=== PATIENT | female | born 1970 | race African-American/Black ===

== ENCOUNTER 2016-03-09 10:34 | Emergency (ER) | payer OTHER ==
[2016-03-09] MEDS ORDERED: KETOROLAC 60 MG/2 ML VIAL IM STA (11:57)
[2016-03-09] MEDS ORDERED: methylPREDNISolone SOD SUCCI 125 MG/2 ML VIAL IM STA (11:57)
--- NOTE | 2016-03-09 12:18 | ED ---
Back Pain HPI - General Chief Complaint: Back Pain/Injury Stated Complaint: back and rt leg pain Time Seen by Provider: 03/09/16 11:40 Source: patient, RN notes reviewed Limitations: no limitations - History of Present Illness Initial Comments: 45 presents emergency department chief complaint of chronic back pain flare. patient states she's had chronic back pain for about a year now. patient states she is scheduled to follow-up with her specialist about a week. patient states that her chronic back pain flared up. patient states it's in the right side of her back. patient states that radiates on the right leg much like her typical back pain. patient states pain is moderate. patient states she does not like opiate type pain medication. patient states she took her tramadol her lyrica with no improvement. patient states she is wondering if maybe she can. some steroids. patient has a lumbar bladder function with this. patient denies any fever chills. patient states that she was concerned due to the pain and she cannot handle it at home so she thought maybe it help. Patient denies any recent fever, chills, shortness of breath, chest pain, abdominal pain, nausea vomiting, numbness or tingling, dysuria or hematuria, constipation or diarrhea, headaches or visual changes, or any other current symptoms. - Related Data Home Medications Medication Instructions Recorded Confirmed Baclofen [Lioresal] 10 mg PO HS 03/09/16 03/09/16 Fluticasone Nasal [place] [Flonase 2 spr EA NOSTRIL DAILY 03/09/16 03/09/16 Nasal [place]] Meloxicam [Mobic] 7.5 mg PO BID 03/09/16 03/09/16 Naproxen Sodium 220 mg PO BID PRN 03/09/16 03/09/16 Pregabalin [Lyrica] 100 mg PO TID 03/09/16 03/09/16 Propranolol HCl [Inderal] 60 mg PO DAILY 03/09/16 03/09/16 Verapamil Sr [Isoptin Sr] 240 mg PO DAILY 03/09/16 03/09/16 traMADol HCL [Ultram] 50 mg PO TID PRN 03/09/16 03/09/16 Previous Rx's Medication Instructions Recorded predniSONE 50 mg PO DAILY #5 tab 03/09/16 Allergies Allergy/AdvReac Type Severity Reaction Status Date / Time No Known Allergies Allergy Verified 03/09/16 12:18 Review of Systems ROS Statement: Those systems with pertinent positive or pertinent negative responses have been documented in the HPI. ROS Other: All systems not noted in ROS Statement are negative. Past Medical History Past Medical History: Hypertension Additional Past Medical History / Comment(s): chronic back pain History of Any Multi-Drug Resistant Organisms: None Reported Past Surgical History: Orthopedic Surgery, Tubal Ligation Additional Past Surgical History / Comment(s): finger surgery Past Psychological History: No Psychological Hx Reported Smoking Status: Current every day smoker Past Alcohol Use History: None Reported Past Drug Use History: None Reported General Exam Limitations: no limitations General appearance: alert, in no apparent distress Head exam: Present: atraumatic, normocephalic, normal inspection ENT exam: Present: normal exam, mucous membranes moist Respiratory exam: Present: normal lung sounds bilaterally. Absent: respiratory distress, wheezes, rales, rhonchi, stridor Cardiovascular Exam: Present: regular rate, normal rhythm, normal heart sounds. Absent: systolic murmur, diastolic murmur, rubs, gallop, clicks Extremities exam: Present: normal inspection, full ROM, normal capillary refill. Absent: tenderness, pedal edema, joint swelling, calf tenderness Back exam: Present: normal inspection, full ROM, tenderness (Right flank and SI joint on the right). Absent: CVA tenderness (R), CVA tenderness (L) Neurological exam: Present: alert, oriented X3, CN II-XII intact. Absent: motor sensory deficit Psychiatric exam: Present: normal affect, normal mood Skin exam: Present: warm, dry, intact, normal color. Absent: rash Course Vital Signs 03/09/16 03/09/16 03/09/16 11:18 12:36 12:54 Temperature 99.1 F 98.3 F Pulse Rate 79 80 Respiratory 18 16 Rate Blood Pressure 185/110 171/94 O2 Sat by Pulse 100 100 Oximetry - Reevaluation(s) Reevaluation #1: 03/09/16 12:54 Patient was found be hypertensive. We discussed follow-up with her doctor. Medical Decision Making - Medical Decision Making 45-year-old female presents emergency Department chief complaint of flareup of her right-sided back pain that is chronic. This time we did give the patient injections. We will start her on steroids for home. We discussed close follow- up with her doctor and return parameters. We discussed all the patient's questions. She stated that she understood. This and she'll be discharged home. Disposition Clinical Impression: Chronic back pain Disposition: HOME SELF-CARE Condition: Stable Instructions: Chronic Back Pain (ED) Additional Instructions: Please use medication as discussed. Please follow up with family doctor if symptoms have not improved over the next two days. Please return to the emergency room if your symptoms increase or worsen or for any other concerns. Prescriptions: predniSONE 50 mg PO DAILY #5 tab Referrals: Polo Callahan MD [Primary Care Provider] - 1-2 days Time of Disposition: 12:55
[2016-03-09 12:37] VITALS: PULSE 80; RESP 16; TEMP 98.3
[2016-03-09 12:54] VITALS: BP 171/94
== END 2016-03-09 12:59 | disposition home or self-care (01) ==
LOC: EC 10:34
DX: G89.29 Other chronic pain (principal); M54.9 Dorsalgia, unspecified; I10 Essential (primary) hypertension; F17.200 Nicotine dependence, unspecified, uncomplicated; Z79.899 Other long term (current) drug therapy
CPT/HCPCS: 99283; 96372 ×2; J2930; J1885

== ENCOUNTER → 2016-03-12 | Outpatient (CLI) | payer OTHER ==
--- NOTE | 2016-03-12 14:47 | US ---
EXAMINATION TYPE: US venous doppler duplex LE RT DATE OF EXAM: 03/12/2016 2:21 PM COMPARISON: NONE CLINICAL HISTORY: Right leg tingling, no h/o dvt. SIDE PERFORMED: Right VESSELS IMAGED: External Iliac Vein (EIV) Common Femoral Vein Deep Femoral Vein Greater Saphenous Vein * Femoral Vein Popliteal Vein Small Saphenous Vein * Proximal Calf Veins (* superficial vessels) IMPRESSION: Right Leg: Appears negative for DVT
== END | disposition home or self-care (01) ==
LOC: RADUSWWP 14:03
PROVIDERS: ATTEND Internal Medicine
DX: R22.41 Localized swelling, mass and lump, right lower limb (principal); M79.661 Pain in right lower leg

== ENCOUNTER → 2016-03-19 | Outpatient (CLI) | payer OTHER ==
[2016-03-19 17:58] LABS: Non-African American GFR(MDRD) >60 (>60 ml/min/1.73 sqM)
== END ==
LOC: LABWHC1 16:53
PROVIDERS: ATTEND Physical Medicine & Rehabilitation
DX: I10 Essential (primary) hypertension (principal); G89.29 Other chronic pain
CPT/HCPCS: 36415; 82565

== ENCOUNTER → 2016-03-20 | Outpatient (CLI) | payer OTHER ==
--- NOTE | 2016-03-20 23:17 | MR ---
EXAMINATION TYPE: MR lumbar spine wo/w con DATE OF EXAM: 03/20/2016 7:30 PM COMPARISON: Prior MRI March 16, 2014 HISTORY: LBP, RLE pain/tingling/numbness x 1 year; Fell down stairs 2 years ago all per patient. Lumb osacral radiculopathy per order. TECHNIQUE: Multiplanar, multisequence images of the lumbar spine is performed without and with IV contrast, util izing 15 mL intravenous MultiHance FINDINGS: Sagittal images of the lumbar spine show vertebral body heights and alignment to appear sat isfactory. There is persistent mild diffuse disc desiccation but the disc space heights remain relati vely well-maintained. No large posterior disc herniations are seen on sagittal images. The conus med ullaris remains normal in position and signal ending at mid L1 vertebral body level. The bone marrow signal intensity is within normal limits. No suspicious postcontrast enhancement is seen. No signifi cant spurring is noted. Axial images show mild facet degenerative changes at T12-L1, L1-L2, and L2-L3 level without significa nt disc herniation or spinal canal effacement, bilateral neural foramina remain patent. Axial images at the L3-L4 level show mild to moderate facet degenerative changes and ligamentum flavu m hypertrophy. There is broad-based posterior disc protrusion minimally effacing the anterior thecal sac. There is mild left-sided anterior inferior neural foraminal narrowing. Right-sided neural forame n is patent. Axial images at L4-L5 level show mild to moderate facet degenerative changes and ligamentum flavum hy pertrophy with broad-based posterior disc protrusion minimally effacing the anterior thecal sac. Bila teral neural foramina are grossly patent. No significant change from prior study is seen Axial images at L5-S1 level shows central disc protrusion but spinal canal is preserved. There are mo derate to advanced facet degenerative changes seen bilaterally. There is new T1 isointense and T2 hyp ointense lesion on axial image 8 right lateral recess level suspicious for complex synovial cyst toma uring approximately 8 mm transversely by 7 mm in anterior posterior dimension by 10 mm in craniocauda l dimension with significant mass effect on the lateral recess. It is extra medullary extradural in l ocation. No significant enhancement is seen. Disc fragment would been differential but no donor site or significant degenerative change is seen to imply disc fragment. Location next to facet joint favor s complex synovial cyst. Mass effect on lateral spinal canal is seen including central S1 nerve. Bila teral neural foramina remain patent. Axial images at S1-S2 level show facet arthropathy otherwise are felt within normal limits. There is redemonstration of retroverted uterus with partial visualization from low T2 lesions felt to reflect fibroids. There are few subcentimeter round T2 hyperintense lesions scattered throughout sli ce portion of liver felt to reflect simple cysts. IMPRESSION: Multilevel degenerative changes most pronounced in the lower lumbar spine, note is made o f significant new finding at L5-S1 level where new lesion probable synovial cyst causes significant m ass effect on the right lateral spinal canal and central right S1 nerve.
== END | disposition home or self-care (01) ==
LOC: RADMRIMAIN 18:37
PROVIDERS: ATTEND Physical Medicine & Rehabilitation
DX: M47.26 Other spondylosis with radiculopathy, lumbar region (principal)
CPT/HCPCS: 72158; A9577

== ENCOUNTER → 2016-06-18 | Outpatient (CLI) | payer OTHER ==
--- NOTE | 2016-06-18 17:59 | US ---
EXAMINATION TYPE: US thyroid st tissue head/neck DATE OF EXAM: 06/18/2016 5:18 PM COMPARISON: NONE CLINICAL HISTORY: R22.0 Swelling,R94.6 Abn Thyroid Labs. R/O goiter, difficulty swallowing pills GLAND SIZE: Right Lobe: 5.9 x 3.0 x 1.8 cm Overall Parenchyma: homogeneous Left Lobe: 5.6 x 2.5 x 1.8 cm Overall Parenchyma: homogeneous Isthmus Thickness: 0.8 cm NODULES RIGHT: # of nodules measured on right: 2 1. 1.3 X 1.3 x 0.8 cm hypoechoic solid nodule at the lower pole with well-defined margins. This no dule is taller than wide and shows intranodular vascularity. Prior size: no prior 2. 0.7 X 0.7 x 0.3 cm hypoechoic with echogenic center nodule at the upper pole with well-defined m argins. This nodule is taller than wide and shows no intranodular vascularity. Prior size: no prior LEFT: # of nodules measured on left: 1 1. 0.9 X 0.7 x 0.6 cm isoechoic solid nodule at the mid pole with well-defined margin. This nodule is taller than wide and shows peripheral vascularity. Prior size: no prior ISTHMUS: # of nodules measured in the isthmus: 0 Bilateral neck scanned, no evidence of lymphadenopathy. Bilateral thyroid lobe enlargement. IMPRESSION: Enlarged thyroid gland with bilateral findings consistent with multinodular goiter. No dominant thyro id mass seen. I have a low suspicion of malignancy.
== END | disposition home or self-care (01) ==
LOC: RADUSWWP 16:59
PROVIDERS: ATTEND Internal Medicine
DX: E04.9 Nontoxic goiter, unspecified (principal)
CPT/HCPCS: 76536

== ENCOUNTER → 2016-12-07 | Outpatient (CLI) | payer OTHER ==
--- NOTE | 2016-12-07 12:23 | XR ---
EXAMINATION TYPE: XR ankle limited RT, XR foot limited RT DATE OF EXAM: 12/07/2016 COMPARISON: NONE HISTORY: Pain TECHNIQUE: Frontal, lateral images of the right ankle and foot are obtained. COMPARISON: None. FINDINGS: There is no acute fracture/dislocation evident. Degenerative changes midfoot. The overlyin g soft tissue appears unremarkable. IMPRESSION: There is no acute fracture or dislocation seen.
== END | disposition home or self-care (01) ==
LOC: RADXRMAIN 12:04
PROVIDERS: ATTEND Internal Medicine
DX: M25.571 Pain in right ankle and joints of right foot (principal)

== ENCOUNTER → 2017-04-29 | Outpatient (CLI) | payer OTHER ==
--- NOTE | 2017-04-29 19:08 | MR ---
EXAMINATION TYPE: MR cervical spine wo con DATE OF EXAM: 04/29/2017 COMPARISON: NONE HISTORY: Pain and Numbness in Both Arms x1 year TECHNIQUE: Multiplanar, multisequence images of the cervical spine were acquired. C2-C3: No evidence for degenerative disc disease. No disc bulge/herniation or protrusion. No Canal stenosis. Foramina are patent bilaterally. C3-C4: There is uncovertebral joint hypertrophy on the right with mild right-sided foraminal encroach ment. Broad-based mild right paracentral disc bulging which effaces the thecal sac. C4-C5: Mild uncovertebral joint hypertrophy. No Canal stenosis. No disc herniation. Mild broad-based central disc bulging. C5-C6: Mild disc desiccation. Neural foramina remain patent. No canal stenosis or focal herniation. C6-C7: No disc herniation or canal stenosis. No foraminal encroachment. C7-T1: No evidence for degenerative disc disease. No disc bulge/herniation or protrusion. No Canal stenosis. Foramina are patent bilaterally. Cervical segments are intact. There is normal alignment. Cervical spinal cord is of normal signal. Craniovertebral junction relationships are within normal limits. The right gland appears to be enla rged. There is mucosal thickening along the hypopharynx laterally in the left. Small mucosal lesion m easuring 8 mm not excluded. IMPRESSION: 1. Multilevel mild degenerative disc disease. Disc bulging noted paracentrally to the right effaces t he thecal sac at C3-C4 and abuts the anterior margin of the spinal cord with no evidence of displacem ent or compression. 2. Mild central disc bulging C4-C5 with no canal stenosis or foraminal encroachment. 3. The findings suspicious for mucosal lesion along the left lateral hypopharynx. ENT consultation an d direct visualization recommended. Correlate clinically.
== END | disposition home or self-care (01) ==
LOC: RADMRIMAIN 18:16
PROVIDERS: ATTEND Psychiatry & Neurology Neurology
DX: M50.21 Other cervical disc displacement, high cervical region (principal); M50.30 Other cervical disc degeneration, unspecified cervical region
CPT/HCPCS: 72141

== ENCOUNTER → 2018-07-08 | Outpatient (CLI) | payer MEDICARE, OTHER ==
--- NOTE | 2018-07-09 11:25 | US ---
EXAMINATION TYPE: US thyroid st tissue head/neck DATE OF EXAM: 07/08/2018 COMPARISON: US CLINICAL HISTORY: R22.0 Thyroid nodule. GLAND SIZE: Right Lobe: 6.0 x 1.6 x 2.5 cm Overall Parenchyma: homogenous Left Lobe: 5.8 x 1.6x 2.3 cm Overall Parenchyma: homogeneous Isthmus Thickness: 0.5 cm NODULES RIGHT: # of nodules measured on right: 2 1. 0.9 X 0.7 x 0.7 cm isoechoic solid nodule at the lower pole with well-defined margins; . This n odule is wider than tall and shows intranodular vascularity. Prior size: 1.3 x 1.3 x 0.8 cm 2. 0.6 X 0.5 x 0.6 cm hypoechoic cystic nodule at the upper pole with well-defined margins; . This nodule is wider than tall and shows no intranodular vascularity. Prior size: 0.7 x 0.7 x 0.3 cm LEFT: # of nodules measured on left: 1 1. 0.7 X 0.6 x 0.6 cm isoechoic solid nodule at the mid pole with poorly defined margins; . This n odule is wider than tall and shows intranodular vascularity. Prior size: 0.9 x 0.7 x 0.6 cm ISTHMUS: # of nodules measured in the isthmus: 0 Bilateral neck scanned, no evidence of lymphadenopathy. Nodules as described. IMPRESSION: 1. Bilateral nonspecific thyroid nodularity. Thyroid glandular enlargement. Thyroid function testing and physical exam findings.
== END ==
LOC: RADUSWWP 15:57
PROVIDERS: ATTEND Internal Medicine
DX: E04.1 Nontoxic single thyroid nodule (principal)
CPT/HCPCS: 76536

== ENCOUNTER 2018-07-23 23:56 | Emergency (ER) | payer MEDICARE, OTHER ==
[2018-07-24 00:10] VITALS: BP 115/76; PULSE 81; RESP 18; TEMP 97.7
--- NOTE | 2018-07-24 00:46 | XR ---
EXAM: XR Left Foot Complete, 3 or More Views CLINICAL HISTORY: ITS.REASON XR Reason: Pain TECHNIQUE: Frontal, lateral and oblique views of the left foot. COMPARISON: No relevant prior studies available. FINDINGS: Bones/joints: No acute fracture. No dislocation. Soft tissues: Unremarkable. No radiopaque foreign body. IMPRESSION: No acute findings.
--- NOTE | 2018-07-24 00:47 | XR ---
EXAM: XR Left Tibia and Fibula, 2 Views CLINICAL HISTORY: ITS.REASON XR Reason: Pain TECHNIQUE: Frontal and lateral views of the left tibia and fibula. COMPARISON: No relevant prior studies available. FINDINGS: Bones/joints: No acute fracture. No dislocation. Soft tissues: Unremarkable. No radiopaque foreign body. IMPRESSION: No acute findings.
--- NOTE | 2018-07-24 00:51 | ED ---
Lower Extremity Injury HPI - General Chief Complaint: Extremity Injury, Lower Stated Complaint: Lt leg injury Time Seen by Provider: 07/24/18 00:17 Source: patient Mode of arrival: ambulatory Limitations: no limitations - History of Present Illness Initial Comments: 48-year-old female patient presents to the emergency department today for evaluation of left lower leg and foot pain. Patient states that she was in her garage when she had a large wrench fall onto her leg. Patient states that she has been having discomfort to the leg since. Patient's that she does have some discomfort with ambulation. She denies any numbness or tingling to the foot or leg. Denies any previous injury. She denies any other injuries or concerns.Patient denies any headache, neck pain, back pain, chest pain, shortness of breath, dizziness, weakness, abdominal pain, nausea, vomiting, or difficulties with bowel movements or urination. - Related Data Home Medications Medication Instructions Recorded Confirmed Baclofen [Lioresal] 10 mg PO HS 03/09/16 03/09/16 Fluticasone Nasal [place] [Flonase 2 spr EA NOSTRIL DAILY 03/09/16 03/09/16 Nasal [place]] Meloxicam [Mobic] 7.5 mg PO BID 03/09/16 03/09/16 Naproxen Sodium 220 mg PO BID PRN 03/09/16 03/09/16 Pregabalin [Lyrica] 100 mg PO TID 03/09/16 03/09/16 Propranolol HCl [Inderal] 60 mg PO DAILY 03/09/16 03/09/16 Verapamil Sr [Isoptin Sr] 240 mg PO DAILY 03/09/16 03/09/16 traMADol HCL [Ultram] 50 mg PO TID PRN 03/09/16 03/09/16 Previous Rx's Medication Instructions Recorded predniSONE 50 mg PO DAILY #5 tab 03/09/16 Allergies Allergy/AdvReac Type Severity Reaction Status Date / Time No Known Allergies Allergy Verified 03/09/16 12:18 Review of Systems ROS Statement: Those systems with pertinent positive or pertinent negative responses have been documented in the HPI. ROS Other: All systems not noted in ROS Statement are negative. Past Medical History Past Medical History: Hypertension Additional Past Medical History / Comment(s): chronic back pain History of Any Multi-Drug Resistant Organisms: None Reported Past Surgical History: Orthopedic Surgery, Tubal Ligation Additional Past Surgical History / Comment(s): finger surgery Past Psychological History: No Psychological Hx Reported Smoking Status: Current every day smoker Past Alcohol Use History: None Reported Past Drug Use History: None Reported General Exam Limitations: no limitations General appearance: alert, in no apparent distress, other (Physical well- developed, well-nourished adult female patient in no acute distress. Vital signs upon presentation are temperature 97.7F, pulse 81, respirations 18, blood pressure 115/76, pulse ox 98% on room air.) Eye exam: Present: normal appearance, PERRL, EOMI. Absent: scleral icterus, conjunctival injection, periorbital swelling Respiratory exam: Present: normal lung sounds bilaterally. Absent: respiratory distress, wheezes, rales, rhonchi, stridor Cardiovascular Exam: Present: regular rate, normal rhythm, normal heart sounds. Absent: systolic murmur, diastolic murmur, rubs, gallop, clicks GI/Abdominal exam: Present: soft, normal bowel sounds. Absent: distended, tenderness, guarding, rebound, rigid Extremities exam: Present: full ROM, normal capillary refill, other (Ecchymosis noted to the left lateral calf. There is tenderness over the dorsal aspect of the left foot. No ankle tenderness. Skin is warm and dry. Cap refills less than 3 seconds. Pedal pulses 2+ and equal bilaterally.). Absent: normal inspection, tenderness, pedal edema, joint swelling, calf tenderness Neurological exam: Present: alert, oriented X3, CN II-XII intact Psychiatric exam: Present: normal affect, normal mood Skin exam: Present: warm, dry, intact, normal color. Absent: rash Course Vital Signs 07/24/18 00:05 Temperature 97.7 F Pulse Rate 81 Respiratory 18 Rate Blood Pressure 115/76 O2 Sat by Pulse 98 Oximetry Medical Decision Making - Medical Decision Making 48-year-old female patient presents to the emergency department today for evaluation of left lower leg and foot pain after a large wrench fell onto her leg on . Physical examination did reveal some ecchymosis to the left lateral calf. Neurovascular status is intact. X-rays of the left tib-fib and left foot were obtained and showed no evidence for fracture. We did discuss findings. Patient's symptoms are consistent with contusion of the leg and foot. She is instructed to rest, ice, elevate the extremity. She is instructed to take Tylenol for pain control. She is instructed to follow-up with her primary care physician for recheck in 1-2 days. Return parameters discussed in detail. She verbalizes understanding and agrees with this plan. - Radiology Data Radiology results: report reviewed, image reviewed 2 views of the left tib-fib are obtained. Report was reviewed in its entirety. Impression by Dr. Berry shows no acute findings. 3 views of the left foot are obtained. Report was reviewed in its entirety. Impression by Dr. Berry shows no acute findings. Disposition Clinical Impression: Contusion of left lower extremity Disposition: HOME SELF-CARE Condition: Good Instructions (If sedation given, give patient instructions): Contusion in Adults (ED) Additional Instructions: Rest, ice, elevate the leg. Follow up with your primary care physician for recheck in 1-2 days. Return to the emergency department immediately for any new, worsening, or concerning symptoms Is patient prescribed a controlled substance at d/c from ED?: No Referrals: Polo Callahan MD [Primary Care Provider] - 1-2 days Time of Disposition: 00:51
== END 2018-07-24 01:09 | disposition home or self-care (01) ==
LOC: EC 23:56
DX: S80.12XA Contusion of left lower leg, initial encounter (principal); M79.672 Pain in left foot; I10 Essential (primary) hypertension; G89.29 Other chronic pain; F17.200 Nicotine dependence, unspecified, uncomplicated; Z79.1 Long term (current) use of non-steroidal anti-inflammatories (NSAID); Z79.51 Long term (current) use of inhaled steroids; Z79.899 Other long term (current) drug therapy; W20.8XXA Other cause of strike by thrown, projected or falling object, initial encounter; Y92.015 Private garage of single-family (private) house as the place of occurrence of the external cause
CPT/HCPCS: 99283

== ENCOUNTER → 2019-02-13 | Outpatient (CLI) | payer MEDICARE, OTHER ==
--- NOTE | 2019-02-13 13:48 | US ---
EXAMINATION TYPE: US venous doppler duplex LE RT DATE OF EXAM: 02/13/2019 1:23 PM COMPARISON: None CLINICAL HISTORY: M25.561 Pain in RT leg. Patient states doctor felt an enlarged vein. No hx DVT. N ot on blood thinners. SIDE PERFORMED: Right TECHNIQUE: The lower extremity deep venous system is examined utilizing real time linear array sonog sania with graded compression, doppler sonography and color-flow sonography. VESSELS IMAGED: External Iliac Vein (EIV) Common Femoral Vein Deep Femoral Vein Greater Saphenous Vein * Femoral Vein Popliteal Vein Small Saphenous Vein * Proximal Calf Veins (* superficial vessels) Grayscale, color doppler, spectral doppler imaging performed of the deep veins of the right lower ext remity. There is normal flow, compressibility, vascular waveforms. Right Leg: Negative for DVT IMPRESSION: No sonographic evidence of deep venous thrombosis within the right lower extremity.
== END | disposition home or self-care (01) ==
LOC: RADUSWWP 12:44
PROVIDERS: ATTEND Orthopaedic Surgery
DX: I80.3 Phlebitis and thrombophlebitis of lower extremities, unspecified (principal); M25.561 Pain in right knee; M25.522 Pain in left elbow

== ENCOUNTER 2019-03-17 11:34 | Day surgery (SDC) | payer MEDICARE, OTHER ==
[~2019-03-17 11:34] MED LIST: DEXAMETHASONE SOD PHOSPHATE 10 MG/ML 1 ML VIAL IV ONE; HYDROmorphone 0.5 MG/0.5 ML SYRINGE IVP PRN; LACTATED RINGERS 1,000 ML IV SCH; MIDAZOLAM 2 MG/2 ML VIAL IV PRN; ONDANSETRON 4 MG/2 ML VIAL IVP ONE; Pre Op ABX Message 1 EACH MISC MISCELLANE ONE; SCOPOLAMINE 1.5MG/72HR PATCH TRANSDERM ONE
[2019-03-17 12:06] LABS: Glucose,Whole Blood 125 mg/dL (75-99)
[2019-03-17 12:12] VITALS: TEMP 97
[2019-03-17] MEDS ORDERED: fentaNYL (PF) 50 MCG/ML 2 ML AMP ONE (12:26)
[2019-03-17] MEDS ORDERED: MIDAZOLAM 2 MG/2 ML VIAL ONE (12:26)
[2019-03-17] MEDS ORDERED: PROPOFOL 10 MG/ML 20 ML VIAL IV ONE (12:26)
[2019-03-17] MEDS ORDERED: LIDOCAINE 2% (PF) 20 MG/ML 10 ML AMP SQ ONE (12:30)
[2019-03-17 13:24] VITALS: BP 127/85; PULSE 70; RESP 18
--- NOTE | 2019-04-07 13:17 | P.OP ---
Date of Procedure: 03/17/19 Procedure(s) Performed: PREOPERATIVE DIAGNOSES: 1. Left carpal tunnel syndrome POSTOPERATIVE DIAGNOSES: 1. Left carpal tunnel syndrome PROCEDURES PERFORMED: 1. Left open carpal tunnel release ANESTHESIA: Local plus IV sedation CLINICAL SCIENTIST: None COMPLICATIONS: None ESTIMATED BLOOD LOSS: Less than 10 cc TOURNIQUET: 10 minutes DISPOSITION: To post-anesthesia care unit INDICATIONS: Sravani is a 48-year-old female with a history of left carpal tunnel syndrome, who presents today for carpal tunnel release. The right side has artery been released successfully recently. The risks and potential complications of surgery have been discussed at length. The consent form has been signed. PROCEDURE: The patient was taken to the operating room after appropriate consent was obtained. IV sedation was initiated and the left upper extremity was prepared and draped in the usual aseptic fashion with Hibiclens prep. The path of the incision and deeper tissues were injected with 2% Lidocaine solution. A total of approximately 10 cc was used. Exsanguination of the limb with an Esmarch bandage was accomplished and the tourniquet was inflated to 200 mm Hg. The skin was then incised with a scalpel just through the dermis into the subcutaneous tissue. The location of the incision was at the base of the palm, at the radial border of the fourth ray. Blunt spreading using dissecting scissors was performed down to palmar fascia, which was then split using a #15 blade scalpel, revealing the underlying transverse carpal ligament. The transverse carpal ligament was incised with this blade under direct visualization at its ulnar border until it was fully released. The contents of the carpal tunnel were normal. No aberrant muscles, tenosynovitis, or tumors were noted. The proximal and distal fascial releases were completed using gentle push technique with small dissecting scissors. Complete release was confirmed by visualization and palpation. Hemostasis was obtained with a bipolar electrocautery device as well as pressure over the wound after deflation of the tourniquet. Closure was performed with 4-0 nylon sutures in vertical mattress technique. Sterile dressing and light compressive dressing were applied and the patient was taken to recovery room in stable condition. Sponge and needle count were correct.
--- NOTE | 2019-04-10 08:13 | CDI ---
Outpatient Documentation Clarification Form Date: 04/10/19 CDS/[employer] Name: Jodi Dinero Phone: if any questions, call Tasha Kessler at [phone] Patient Name: Sravani Wilkins Admit Date: 03/17/19 Discharge Date: 03/17/19 ATTENTION: The [facility] Coding Staff appreciate your assistance in clarifying documentation. Please respond to the clarification below the line at the bottom and electronically sing. The [facility] Coding Staff will review the response and follow-up if needed. Please Note: Queries are made part of the Legal Health Record. If you have any questions, please contact the [facility]. Dear Dr. Norton, Please provide clarification as to the laterality of the procedure. The H&P and anesthesia record state left carpal tunnel and the operative note states right carpal tunnel. Please clarify Thank you for your kind consideration. MTDD
== END 2019-03-17 13:50 | disposition home or self-care (01) ==
LOC: OR 11:34
PROVIDERS: ATTEND Orthopaedic Surgery
DX: G56.02 Carpal tunnel syndrome, left upper limb (principal); I10 Essential (primary) hypertension; Z97.3 Presence of spectacles and contact lenses; Z82.49 Family history of ischemic heart disease and other diseases of the circulatory system; F17.210 Nicotine dependence, cigarettes, uncomplicated; E78.5 Hyperlipidemia, unspecified; E11.9 Type 2 diabetes mellitus without complications; M19.90 Unspecified osteoarthritis, unspecified site; Z98.51 Tubal ligation status; K21.9 Gastro-esophageal reflux disease without esophagitis; Z79.84 Long term (current) use of oral hypoglycemic drugs; Z79.1 Long term (current) use of non-steroidal anti-inflammatories (NSAID); Z79.899 Other long term (current) drug therapy
CPT/HCPCS: 81025; 64721; J2250; J1100; J2001; J2405; J3010; J2704

== ENCOUNTER → 2020-03-28 | Outpatient (CLI) | payer MEDICARE, OTHER ==
[2020-03-28 14:55] LABS: Basophils % (A) 1 %; Eosinophils # (A) 0.1 k/uL (0-0.7); Eosinophils % (A) 1 %; HCT 36.9 % (34.0-46.0); HGB 12.3 gm/dL (11.4-16.0); Lymphocytes # (A) 2.1 k/uL (1.0-4.8); Lymphocytes % (A) 33 %; MCH 29.7 pg (25.0-35.0); MCHC 33.3 g/dL (31.0-37.0); MCV 89.3 fL (80.0-100.0); Monocytes # (A) 0.4 k/uL (0-1.0); Monocytes % (A) 6 %; Neutrophils # (A) 3.6 k/uL (1.3-7.7); Neutrophils % (A) 58 %; Platelet Count 181 k/uL (150-450); RBC 4.14 m/uL (3.80-5.40); RDW 14.7 % (11.5-15.5); WBC 6.2 k/uL (3.8-10.6)
[2020-03-28 15:55] LABS: Erythrocyte Sedimentation Rate 28 mm/hr (0-20)
[2020-03-28 15:59] LABS: Appearance,BF Bloody; Color,BF Red; Nucleated Cells, Body Fluid 2500 /uL; RBC, Body Fluid 63500 /uL
[2020-03-28 16:57] LABS: Mononuclear WBC,Body Fluid 79 %; Polynuclear WBC,Body Fluid 21 %; Total Cells Counted,Body Fluid 100
[2020-03-29 00:32] LABS: Cyclic Citrull Pep IgG Unit <0.5 U/mL; Cyclic Citrullinated Pep IgG NEGATIVE (NEGATIVE)
[2020-03-29 01:29] LABS: T4, Free (Free Thyroxine) 1.1 ng/dL (0.80-1.80)
[2020-03-29 01:46] LABS: African American GFR (CKD) 85.8 (60.0-200.0); Anion Gap 8.9 mmol/L (4.00-12.00); BUN/Creat Ratio 15.56 Ratio (12.00-20.00); C Reactive Protein 1.9 mg/dL (0.0-0.8); Calcium 9.6 mg/dL (8.7-10.3); Carbon Dioxide 27.1 mmol/L (21.6-31.8); Potassium 3.9 mmol/L (3.5-5.5); Uric Acid 5.4 mg/dL (2.9-7.7)
[2020-03-29 12:57] LABS: Angiotensin-1 Converting Enz. 24 U/L (8-52)
[2020-03-29 17:39] LABS: HLA B27 NEGATIVE
== END | disposition home or self-care (01) ==
LOC: LABWHC1 14:00
PROVIDERS: ATTEND Orthopaedic Surgery
DX: M25.561 Pain in right knee (principal); M25.562 Pain in left knee; M17.0 Bilateral primary osteoarthritis of knee; M25.461 Effusion, right knee; M51.36 Other intervertebral disc degeneration, lumbar region; F17.210 Nicotine dependence, cigarettes, uncomplicated; Z48.89 Encounter for other specified surgical aftercare; Z98.890 Other specified postprocedural states
CPT/HCPCS: 36415; 80048; 82164; 82306; 82550; 83520; 84439; 84443; 84450; 84460; 84550; 85025; 85652; 86038; 86140; 86200; 86431; 86812; 87070; 87075; 87205; 89050; 89060

== ENCOUNTER → 2021-02-26 | Outpatient (CLI) | payer MEDICARE, OTHER ==
--- NOTE | 2021-02-27 08:34 | US ---
EXAMINATION TYPE: US thyroid st tissue head/neck DATE OF EXAM: 02/26/2021 COMPARISON: 07/08/2018 CLINICAL HISTORY: 50-year-old female R22.1 Localized swelling, mass and lump, neck. Swelling per orde r. Hx biopsy per patient. GLAND SIZE: Right Lobe: 6.4 x 3.0 x 1.9 cm Overall Parenchyma: homogenous Left Lobe: 6.3 x 2.5 x 1.6 cm Overall Parenchyma: homogeneous Isthmus Thickness: 0.4 cm NODULES RIGHT: # of nodules measured on right: 2 1. 0.3 X 0.4 x 0.3 cm, upper-mid hypoechoic TR 4 nodule, which is wider than tall, with smooth izzy ins, without echogenic foci. Prior size: Does not correlate with certainty (not clearly seen previously). 2. 1.1 X 1.0 x 0.8 cm, lower lateral, solid or almost completely solid, TR 3 isoechoic nodule, whic h is wider than tall, with smooth margins, without echogenic foci. Prior size: 0.9 x 0.7 x 0.7 cm LEFT: # of nodules measured on left: 1 1. 0.8 X 0.8 x 0.5 cm, mid, solid or almost completely solid, TR 3 isoechoic nodule, which is wider than tall, with ill-defined margins, without echogenic foci. Prior size: 0.7 x 0.6 x 0.6 cm ISTHMUS: # of nodules measured in the isthmus: 1 1. Left 0.6 X 0.6 x 0.3 cm solid or almost completely solid, isoechoic TR 3 nodule, which is wider t guy tall, with ill-defined margins, without echogenic foci. Prior size: no prior Bilateral neck scanned, no evidence of lymphadenopathy. IMPRESSION: 1. A solitary tiny TR4 nodule at the right upper pole measuring 4 mm. As it was not clearly seen prev iously, consider follow-up to reassess. 2. A few scattered TR3 solid nodules on both sides. The dominant nodule on the right is slightly larg er at 1.1 x 1.0 cm (versus 9 x 7 mm, previously). The nodule on the left measures 8 mm.
== END | disposition home or self-care (01) ==
LOC: RADUSWWP 16:55
PROVIDERS: ATTEND Internal Medicine
DX: E04.2 Nontoxic multinodular goiter (principal)
CPT/HCPCS: 76536

== ENCOUNTER → 2023-12-28 | Outpatient (CLI) | payer MEDICARE, OTHER ==
--- NOTE | 2023-12-30 09:30 | MM ---
Reason for Exam: Screening (asymptomatic). Last screening mammogram was performed 12 month(s) ago. Patient History: Menarche at age 11. First Full-Term at age 21. Postmenopausal. Patient used Hormonal Contraceptives for 10 years. Risk Values: Louisa 5 year model risk: 1.4%. NCI Lifetime model risk: 7.8%. Prior Study Comparison: 01/07/2010 Bilateral Screening Mammogram, [facility]. 03/27/2015 Bilateral Screening Mammogram, [facility]. 12/10/2022 Bilateral Screening Mammogram, [facility]. Tissue Density: There are scattered areas of fibroglandular density. Findings: Analyzed By CAD. There is no suspicious group of microcalcifications or new suspicious mass in either breast. Overall Assessment: Negative, BI-RAD 1 Management: Screening Mammogram of both breasts in 1 year. . Patient should continue monthly self-breast exams. A clinical breast exam by your physician is recommended on an annual basis. This exam should not preclude additional follow-up of suspicious palpable abnormalities. Note on Louisa scores and lifetime risk: 1. A Louisa score greater than 3% is considered moderate risk. If this is the case, consider specialist referral to assess eligibility for a risk reducing agent. 2. If overall lifetime risk for the development of breast cancer is 20% or higher, the patient may qualify for future screening with alternating mammogram and breast MRI. [facility], , 12/30/2023 9:27 AM. Electronically signed and approved by: Antony Ocampo M.D. Radiologis
== END | disposition home or self-care (01) ==
LOC: RADMAMWWP 16:35
PROVIDERS: ATTEND Family Medicine
CPT/HCPCS: 77063; 77067

== ENCOUNTER → 2024-07-08 | Outpatient (CLI) | payer MEDICARE, BC ==
[2024-07-09 06:35] LABS: HCT 42.7 % (37.2-46.3); HGB 13.8 g/dL (12.0-15.0); MCHC 32.3 g/dL (32.0-37.0); MCV 86.6 FL (80.0-97.0); Mean Platelet Volume 11.4 FL (9.5-12.2); NRBC Per 100 WBC 0 X 10*3/uL (0.00-0.01); Platelet Count 171 X 10*3/uL (140-440); RBC 4.93 X 10*6/uL (4.10-5.20); RDW 14.9 % (11.5-14.5); WBC 6.24 X 10*3/uL (4.50-10.00)
[2024-07-09 09:25] LABS: ALT 18 U/L (8-44); AST 21 U/L (13-35); Albumin 4.3 g/dL (3.8-4.9); Albumin/Globulin Ratio 1.48 Ratio (1.60-3.17); Alkaline Phosphatase 118 U/L (41-126); BUN/Creat Ratio 14.62 Ratio (12.00-20.00); Blood Urea Nitrogen 11.7 mg/dL (9.0-27.0); Calcium 9.5 mg/dL (8.7-10.3); Carbon Dioxide 19.4 mmol/L (21.6-31.8); Chloride 106 mmol/L (96-109); Chol/HDL Ratio 4.41 Ratio; Globulin 2.9 g/dL (1.6-3.3); Glucose 111 mg/dL (70-110); LDL Cholesterol,Calculated 101.2 mg/dL (0.0-131.0); Potassium 3.8 mmol/L (3.5-5.5); Sodium 143 mmol/L (135-145); Total Bilirubin 0.5 mg/dL (0.3-1.2); Total Protein 7.2 g/dL (6.2-8.2); VLDL Calculation 17.88 mg/dL (5.00-40.00)
[2024-07-09 10:06] LABS: NT-Pro-B-Type Natriuretic Pept <36 pg/mL (0-125)
== END | disposition home or self-care (01) ==
LOC: LABWHC1 10:33
PROVIDERS: ATTEND Student in an Organized Health Care Education/Training Program
DX: Z13.6 Encounter for screening for cardiovascular disorders (principal); D72.9 Disorder of white blood cells, unspecified; R79.89 Other specified abnormal findings of blood chemistry; E11.9 Type 2 diabetes mellitus without complications; I50.9 Heart failure, unspecified; E78.5 Hyperlipidemia, unspecified; E03.9 Hypothyroidism, unspecified
CPT/HCPCS: 36415; 80053; 80061; 83036; 83880; 84443; 85027; 86141